=== PATIENT | male | born 1960 | race Caucasian/White ===

== ENCOUNTER 2018-06-16 11:04 | Observation (INO) | payer OTHER ==
[2018-06-16] MEDS ORDERED: Nitroglycerin 2% Ointment 1 INCH/1 GM Packet ONE (11:35)
[2018-06-16 11:36] LABS: #Basophils 0.1 thou/uL (0.0-0.2); #Eosinphils 0.1 thou/uL (0.0-0.7); #Lymphocytes 1.6 thou/uL (1.20-3.40); #Monocytes 0.3 thou/uL (0.11-0.59); #Neutrophils 3.1 thou/uL (1.40-6.50); %Basophils 1.1 % (0.0-1.0); %Eosinophils 2.3 % (0.0-10.0); %Lymphocytes 30.5 % (21.0-51.0); %Monocytes 6.1 % (0.0-10.0); Hemoglobin 12.7 g/dL (14.0-18.0); Mean Corpuscular HGB CONC 33.5 g/dL (32.0-36.0); Mean Corpuscular Hemoglobin 31.3 pg (27.0-31.0); Mean Corpuscular Volume 93.3 fL (78.0-98.0); Mean Platelet Volume 7.7 fL (7.4-10.4); Platelet Count 246 thou/uL (130-400); RBC Distribution Width 12.6 % (11.5-14.5); Red Blood Cell (RBC) Count 4.07 mill/uL (4.70-6.10); White Blood Cell (WBC) Count 5.2 thou/uL (4.8-10.8)
[2018-06-16 12:11] LABS: ALT (SGPT) 20 U/L (8-55); AST (SGOT) 19 U/L (5-34); Alkaline Phosphatase 53 U/L (40-150); Anion Gap 14 mmol/L (10-20); BUN (Urea Nitrogen) 13 mg/dL (8.4-25.7); Bilirubin, Total 0.6 mg/dL (0.2-1.2); CK (CPK) 237 U/L (30-200); Calc. Creatinine Clearance 0 mL/min (70-130); Calcium 9.3 mg/dL (7.8-10.44); Carbon Dioxide 22 mmol/L (22-29); Chloride 110 mmol/L (98-107); Estimated GFR-MDRD 60; Globulin 2.6 g/dL (2.4-3.5); Glucose 86 mg/dL (70-105); Potassium 4.3 mmol/L (3.5-5.1); Protein, Total 6.6 g/dL (6.0-8.3); Sodium 142 mmol/L (136-145)
[2018-06-16] MEDS ORDERED: Acetaminophen 325 MG TAB PO PRN (13:14)
[2018-06-16] MEDS ORDERED: Acetaminophen 650 MG Suppository PR PRN (13:14)
[2018-06-16] MEDS ORDERED: Ondansetron ODT 4 MG TAB PO PRN (13:14)
[2018-06-16] MEDS ORDERED: Guaifenesin DM 100-10/5 ML UDCUP PO PRN (13:14)
[2018-06-16 13:55] VITALS: BMI 33.4
[2018-06-16] MEDS: Nitroglycerin 0.4 MG TAB (25 Tab Bottle) PO PRN ×2 (16:28→16:33)
[2018-06-16] MEDS ORDERED: Docusate 100 MG CAP PO PRN (16:58)
[2018-06-16] MEDS ORDERED: PROVENTIL INHALER 6.7 G (200 INHALATIONS) INH PRN (16:58)
--- NOTE | 2018-06-16 18:47 | RAD ---
TWO VIEW CHEST SERIES: INDICATIONS: Chest pain. Wheezing. COMPARISON: No prior comparison. FINDINGS: Mild hyperinflation of the lungs is seen. There is mild elevation of the left hemidiaphragm. The ca rdiac silhouette is at the upper limits of normal in size. Mild prominence of the pulmonary vasculat ure with interstitial prominence is seen bilaterally. No lobar consolidation. IMPRESSION: 1. Hyperinflated lungs. 2. No lobar consolidation. 3. Mild interstitial prominence bilaterally, which could be on the basis of edema versus mild inters titial lung disease. Correlate clinically. POS: DOUG
--- NOTE | 2018-06-16 18:49 | PDOC.EVN ---
Event Note - Event Note Event Note: patient seen, discussed with Odalys Will, concur
--- NOTE | 2018-06-16 18:57 | HP ---
REASON FOR ADMISSION: Chest pain and shortness of breath. HISTORY OF PRESENT ILLNESS AND REVIEW OF SYSTEMS: Mr. Rothman is a 57-year-old prisoner, who [place] [facility] presenting with chest pain and shortness of breath. He is known to have a history of coronary artery disease, hypertension, and recent NSTEMI. Previous ME in 2005 as well. He has undergone cardiac stents x2, the most recent one was done two weeks ago. According to the patient, the pain is similar to that which he experienced with his recent NSTEMI. It is in the left lower chest/left upper quadrant region. He has had no relief with nitroglycerin paste. He also reported discomfort in the substernal area per outside ED notes, however, denies this at present. The patient reports having pain that is not as severe in the left lower chest, which he rates a 8/10 in severity. He describes a squeezing pain in the center of his chest on initial presentation to the ED. No chest pain at present. He has undergone investigations including an ECG that showed no changes concerning for ischemia at 4:13 a.m. Per outside notes, he had an ECG done early hours this morning, which showed under inflated lungs with bibasilar and retrocardiac opacities felt to represent an atelectasis and no focal consolidation, pneumothorax, or pleural effusion. The aorta was noted to be tortuous and heart size is normal in size. Laboratory studies done early hours this morning included a troponin at 4:24 a.m., which was mildly raised at 0.004 with the reference range of less than 0.034 for normal study. His white cell count was unremarkable. Kidney function was normal. He was noted to have an elevated lipase of 635. Otherwise, LFTs were unremarkable on outside reports. Repeat laboratory studies done here show normal full blood count. Chemistry panel is unremarkable and LFTs normal with a slightly elevated lipase of 102. CK raised at 237. Initial troponin done here was unremarkable. BNP was 86.4. The patient is being admitted for chest pain rule out. PAST MEDICAL HISTORY: 1. COPD. 2. Coronary artery disease. 3. Bunion. 4. Chest pain. 5. Hypertension. 6. Hypothyroidism. 7. Osteoarthritis. 8. NSTEMI in April 2017. 9. Asthma. 10. BPH. 11. ME in 2005. PAST SURGICAL HISTORY: 1. Total knee arthroplasty in September 2012, right foot surgery. 2. Percutaneous transluminal coronary angioplasty in April 2018. SOCIAL HISTORY: The patient is currently a prisoner. He has a history of amphetamine abuse 25 years ago. A 45 pack year smoking history. PHYSICAL EXAMINATION: GENERAL: The patient appears to be in no acute distress, found resting comfortably on a stretcher in the ED. VITAL SIGNS: Temperature 97.9, pulse 73, respirations 20, O2 saturation 97% on room air, and blood pressure 139/103. HEENT: Normocephalic and atraumatic. Pupils are equal, round, and reactive to light. Sclerae icterus. Oropharynx is clear. NECK: Supple without lymphadenopathy. LUNGS: Notable for diffuse inspiratory and expiratory wheezing. No crackles. Reduced at bases bilaterally. CARDIAC: Regular rate and rhythm without audible murmurs, rubs, or gallops. ABDOMEN: Soft, nondistended with mild discomfort in the left upper quadrant, but no guarding or rigidity. EXTREMITIES: No clubbing, cyanosis, or edema. NEUROLOGICAL: Alert and oriented x3. SKIN: Without rash or jaundice. LABORATORY DATA: White blood count 5.2, hemoglobin 12.7, hematocrit 38, platelets 246. Sodium 142, potassium 4.3, BUN 13, creatinine 1.23, eGFR 60, total bilirubin 0.6, AST 19, ALT 20, alkaline phosphatase 53, lipase 102, CK 237, troponin 1 negative. BNP 86.4. IMPRESSION AND PLAN: Mr. Rothman is being admitted for management of the following. 1. Chest pain. At present, the patient denies having any recurrent episodes of chest pain. He complains only of left upper quadrant discomfort at this present time. Troponin done outside and repeated here is negative. BNP 86.4. Per outside chest x-ray report, he was noted to have changes consistent with atelectasis in the bibasilar regions. We will repeat PA and lateral chest x-ray here given shortness of breath and diffuse wheezing with decreased breath sounds at the bases. We will repeat troponin and if negative, symptoms likely unrelated to cardiac etiology. 2. Abdominal discomfort. At present time, this is mild and he has been tolerating oral intake without any nausea or vomiting. No bowel complaints. The [place] [facility] was significantly elevated at 635. Lipase here was only mildly elevated at 102. We will repeat LFTs in the morning as well. 3. Hypertension. Resume home medications and monitor BP. 4. Chronic obstructive pulmonary disease. The patient with wheezing at present. We will give DuoNeb and reassess. As mentioned above, we will repeat chest x-ray. Continue to monitor O2 saturations. 5. Venous thromboembolism prophylaxis. 6. Gastrointestinal prophylaxis. 7. We will obtain outside Cardiology records from recent [id number] myocardial infarction and procedures. The patient was seen by Dr. Neely, who agrees with the plan of care as described above. Job ID: [id number]
[2018-06-16] MEDS ORDERED: Cyclobenzaprine 10 MG TAB PO PRN (19:56)
[2018-06-16] MEDS: Atorvastatin Calcium 40 MG TAB PO SCH (20:31)
[2018-06-16] MEDS: Terazosin HCl 5 MG CAP PO SCH (20:32)
[2018-06-16] MEDS: Famotidine 20 MG TAB PO SCH (20:32)
[2018-06-16] MEDS: Venlafaxine HCl XR 75 MG CAP PO SCH (20:32)
[2018-06-16] MEDS: Metoprolol Tartrate 25 MG TAB PO SCH (20:32)
[2018-06-16] MEDS: Naproxen 500 MG TAB PO SCH (20:34)
[2018-06-16] MEDS ORDERED: Famotidine 20 MG TAB PO SCH (21:00)
--- NOTE | 2018-06-16 21:26 | CON ---
DATE OF CONSULTATION: HISTORY: Parveen Rothman is a 57-year-old white male with history of myocardial infarction in 2005. He also apparently had a recent non-STEMI. He is incarcerated at the present time somewhere in the [place] area. He was taken to [place] and then [facility] to [facility]. He underwent catheterization and stent placement. He states that 1 week later, he underwent a second stent placement. This morning at 1:30 a.m., he was awakened with left-sided chest pressure, tightness associated with some diaphoresis. The pain was definitely pleuritic in nature. He was taken by ambulance to [facility]. Apparently, they could not find any place to transport him to and eventually [facility] agreed to accept him after closer hospitals were found to be full. He has continued to intermittently have chest discomfort lasting 30 to 40 minutes and the pain is pleuritic in nature. PAST MEDICAL HISTORY: COPD, coronary artery disease, hypertension, hypothyroidism, hypercholesterolemia, BPH, and myocardial infarction. OPERATIONS: Knee surgery, foot surgery, coronary stent placement approximately 1 week ago and 2 weeks ago. SOCIAL HISTORY: Methamphetamine abuse for 25 years. He smoked one-third to one-half pack per day. REVIEW OF SYSTEMS: Otherwise unremarkable. PHYSICAL EXAMINATION: VITAL SIGNS: Blood pressure 130/66, pulse of 99. HEENT: PERRL. NECK: Supple. CHEST: Clear. CARDIAC: S1 and S2 normal without any S3, S4, or murmurs. Carotid upstrokes are normal without bruits. ABDOMEN: Normal bowel sounds without tenderness or organomegaly. EXTREMITIES: Revealed no clubbing, cyanosis, or edema. NEUROLOGIC: Grossly intact. SKIN: Warm and dry. MUSCULOSKELETAL: Revealed palpable left chest tenderness that reproduces his pain. LABORATORY DATA: EKG revealed normal sinus rhythm and is unremarkable. Hemoglobin 12.7, hematocrit 38.0, white count 5200, and platelets 246,000. Sodium 142, potassium 4.3, chloride 110, carbon dioxide 22, BUN 13, and creatinine 1.23. Troponin I less than 0.010 x2. IMPRESSION: 1. Noncardiac chest pain. This pain is pleuritic in nature with palpable chest wall tenderness. I doubt that this is cardiac. If this was cardiac pain during this time frame 2 to 3 weeks after stent placement, he would have acute stent thrombosis with very high cardiac enzymes and pain would not intermittently be relieved. 2. History of non-ST elevation myocardial infarction 2 to 3 weeks ago with stent placement and then 1 or 2 weeks later, another stent was placed. He also had myocardial infarction in 2005. 3. Hypertension. 4. Hypercholesterolemia. 5. Hypothyroidism. 6. Former smoker. 7. History of amphetamine abuse. 8. Chronic obstructive pulmonary disease. PLAN: Cardiac enzymes will continue to be obtained. We have requested records from [facility] to better understand the timing of his previous stents. Echocardiogram will be performed to rule out any pericardial fluid that may have been related to his stent placement recently. He will be started on nonsteroidal anti-inflammatory medications and Flexeril for his muscle pain. Job ID: [id number] [facility]
[2018-06-17 05:44] LABS: #Basophils 0.1 thou/uL (0.0-0.2); #Eosinphils 0.2 thou/uL (0.0-0.7); #Lymphocytes 1.7 thou/uL (1.20-3.40); #Monocytes 0.3 thou/uL (0.11-0.59); %Basophils 1.2 % (0.0-1.0); %Eosinophils 4.2 % (0.0-10.0); %Lymphocytes 40.7 % (21.0-51.0); %Monocytes 6.8 % (0.0-10.0); %Neutrophils 47.1 % (42.0-75.0); Hemoglobin 11.4 g/dL (14.0-18.0); Mean Corpuscular HGB CONC 34.3 g/dL (32.0-36.0); Mean Corpuscular Hemoglobin 32.3 pg (27.0-31.0); Mean Corpuscular Volume 94.1 fL (78.0-98.0); Mean Platelet Volume 7.7 fL (7.4-10.4); Platelet Count 230 thou/uL (130-400); RBC Distribution Width 12.4 % (11.5-14.5); Red Blood Cell (RBC) Count 3.52 mill/uL (4.70-6.10); White Blood Cell (WBC) Count 4.3 thou/uL (4.8-10.8)
[2018-06-17] MEDS ORDERED: Levothyroxine Sodium 125 MCG TAB PO SCH (06:00)
[2018-06-17 06:16] LABS: ALT (SGPT) 17 U/L (8-55); AST (SGOT) 16 U/L (5-34); Albumin 3.6 g/dL (3.5-5.0); Alkaline Phosphatase 49 U/L (40-150); Bilirubin, Direct 0.2 mg/dL (0.1-0.3); Bilirubin, Total 0.4 mg/dL (0.2-1.2); Protein, Total 6.1 g/dL (6.0-8.3)
[2018-06-17 06:19] LABS: Anion Gap 14 mmol/L (10-20); BUN (Urea Nitrogen) 13 mg/dL (8.4-25.7); Calc. Creatinine Clearance 137 mL/min (70-130); Calcium 8.9 mg/dL (7.8-10.44); Carbon Dioxide 23 mmol/L (22-29); Chloride 109 mmol/L (98-107); Estimated GFR-MDRD 80; Glucose 82 mg/dL (70-105); Lipase 49 U/L (8-78); Potassium 3.9 mmol/L (3.5-5.1); Sodium 142 mmol/L (136-145)
[2018-06-17] MEDS ORDERED: Lisinopril 20 MG TAB PO SCH (09:00)
[2018-06-17] MEDS ORDERED: Clopidogrel Bisulfate 75 MG TAB PO SCH (09:00)
[2018-06-17] MEDS ORDERED: Aspirin Chewable 81 MG TAB PO SCH (09:00)
[2018-06-17] MEDS ORDERED: Triamterene/Hydrochlorothiazide 37.5 mg/25 mg Tablet PO SCH (09:00)
[2018-06-17] MEDS: Naproxen 500 MG TAB PO SCH ×2 (09:25→20:28)
[2018-06-17] MEDS: Amlodipine 5 MG TAB PO SCH ×2 (09:25→09:26)
[2018-06-17] MEDS: Famotidine 20 MG TAB PO SCH ×2 (09:25→20:27)
[2018-06-17] MEDS: Metoprolol Tartrate 25 MG TAB PO SCH ×2 (09:26→20:26)
[2018-06-17] MEDS: Terazosin HCl 5 MG CAP PO SCH (20:26)
[2018-06-17] MEDS: Atorvastatin Calcium 40 MG TAB PO SCH (20:27)
[2018-06-17] MEDS: Venlafaxine HCl XR 75 MG CAP PO SCH (20:28)
[2018-06-17 20:35] VITALS: BP 153/75; TEMP 98.5
--- NOTE | 2018-06-19 14:13 | DIS ---
DATE OF ADMISSION: 06/16/2018 DATE OF DISCHARGE: 06/18/2018 CONSULTING PHYSICIAN: Dr. Pacheco of Cardiology. DISCHARGE DIAGNOSES: 1. Chest pain, noncardiac. 2. History of non-ST elevation myocardial infarction. 3. Hypertension. 4. Hypercholesterolemia. 5. Hypothyroidism. 6. Tobacco use. 7. History of amphetamine use. 8. Chronic obstructive pulmonary disease. HOSPITAL COURSE: Mr. Rothman is a 57-year-old man, who initially presented complaining of pressure in the left side of his chest and was transferred here from [facility] for chest pain rule out. The patient has had shortness of breath with wheezing that improved on nebulizer treatments. He reported having a cough and noted to have chest wall tenderness. He was evaluated by Dr. Pacheco of Cardiology, who also believed his pain was noncardiac in nature. He did undergo laboratory studies including cardiac enzymes, which were normal. A BNP was normal at 86.4. He underwent a chest x-ray that showed hyperinflated lungs and no lobar consolidation. There was mild interstitial prominence bilaterally, felt to be edema versus mild interstitial lung disease. He also underwent an echo, which showed an EF of 50% to 55% with hypokinetic motion of the apical wall noted in the left ventricle, mild mitral regurgitation and tricuspid regurgitation. The patient had normal vital signs throughout his hospital stay including normal saturations on room air. He had a normal white blood count and was without any complaints on day of discharge. Initially, the patient had complained of left lower abdominal discomfort that resolved on its own. He had no other associated symptoms and lipase done in [facility] was significantly elevated at 635. When repeated here, it was mildly elevated at 102. It was repeated once again on day of discharge and normal at 49. REVIEW OF SYSTEMS: His cough has improved and wheezing has resolved following nebulizer treatments. No further chest pain. He continued with an occasional dry cough with minimal discomfort on palpation of the anterior chest wall, but no complaints of purulent sputum or hemoptysis. He remained afebrile without any chills or sweats. He has been tolerating regular diet. Denies having any nausea or vomiting. No abdominal pain or cramping. No bowel changes or urinary symptoms. All other review of systems, negative. PHYSICAL EXAMINATION: GENERAL: The patient appears well developed, well nourished, in no acute distress. VITAL SIGNS: Temperature 98.5, pulse 80, respirations 16, O2 saturation 97% on room air, blood pressure 153/75. HEENT: Normocephalic, atraumatic. Pupils are equal, round, and reactive to light. Sclerae are without icterus. Oropharynx is clear. NECK: Supple. No lymphadenopathy. LUNGS: Clear to auscultation bilaterally without wheezes, rales, or rhonchi. CARDIAC: Regular rate and rhythm without audible murmurs, rubs, or gallops. ABDOMEN: Soft, nontender, nondistended. Normoactive bowel sounds present. EXTREMITIES: No clubbing, cyanosis, or edema. NEUROLOGIC: Alert and oriented x3. SKIN: Without rash or jaundice. LABORATORY DATA: White blood count 4.3, hemoglobin 11.4, hematocrit 33.1, platelets 230. Sodium 142, potassium 3.9, BUN 13, creatinine 0.96, GFR 80. LFTs unremarkable. Troponin negative x3. Lipase 49. IMAGING DATA: 1. Chest x-ray, 06/16/2018. Hyperinflated lungs. No lobar consolidation. Mild interstitial prominence bilaterally, edema versus mild interstitial lung disease. 2. Echo, 06/17/2018. No evidence of any pericardial effusion. EF 50% to 55%. Hypokinetic motion of the apical wall in the left ventricle. Mild mitral regurgitation. Mild tricuspid regurgitation. 3. ECG, 06/16/2018. Normal sinus rhythm. DISCHARGE MEDICATIONS: The patient is started on Flexeril by Dr. Pacheco as he is believed to have musculoskeletal type pain rather than cardiac in nature. He was given a new prescription for Flexeril 10 mg p.o. three times a day as needed. Otherwise, advised to resume regular home medications. CONDITION AT DISCHARGE: Stable. ACTIVITY: As tolerated. DIET: Heart healthy. FOLLOWUP: The patient to be seen by primary care physician within one week. DISPOSITION: The patient [facility] to [facility] on June [facility], 2018. The patient's case was discussed with Dr. Dobbs, who agrees with plan of care as described above. Job ID: [id number]
--- NOTE | 2018-06-21 17:34 | EKG ---
Test Reason : CP Blood Pressure : / mmHG Vent. Rate : 071 BPM Atrial Rate : 071 BPM P-R Int : 122 ms QRS Dur : 102 ms QT Int : 398 ms P-R-T Axes : -19 009 006 degrees QTc Int : 432 ms Normal sinus rhythm Normal ECG Confirmed by LIA HERNANDEZ, SARAH Simms ([id number]), slot editor MARYAM BUSTAMANTE ([id number]) on 06/21/2018 5:34:12 PM Referred By: Confirmed By:SARAH FITZGERALD MD
== END 2018-06-18 02:48 ==
LOC: ERS 11:04 → 2SW 12:14
PROVIDERS: ADMIT Internal Medicine; ATTEND Internal Medicine
DX: R07.89 Other chest pain (principal); R06.02 Shortness of breath; I25.2 Old myocardial infarction; I10 Essential (primary) hypertension; E78.00 Pure hypercholesterolemia, unspecified; J44.9 Chronic obstructive pulmonary disease, unspecified; E03.9 Hypothyroidism, unspecified; I25.10 Atherosclerotic heart disease of native coronary artery without angina pectoris; N40.0 Benign prostatic hyperplasia without lower urinary tract symptoms; M19.90 Unspecified osteoarthritis, unspecified site; Z79.82 Long term (current) use of aspirin; Z79.899 Other long term (current) drug therapy; Z87.891 Personal history of nicotine dependence; Z88.0 Allergy status to penicillin; Z95.5 Presence of coronary angioplasty implant and graft
CPT/HCPCS: 36415; 71046; 80048; 80053; 80076; 82150; 82550; 83690; 83880; 84484; 85025; 90471; 90732; 93005; 93306; 94640; 99285; G0009; G0378; J7620

== ENCOUNTER 2022-07-04 23:57 | Emergency (ER) | payer OTHER ==
[2022-07-05] MEDS ORDERED: Morphine 2 MG/ML VIAL ONE ×2 (00:31→06:10)
[2022-07-05 01:18] LABS: ALT (SGPT) 15 U/L (8-55); AST (SGOT) 26 U/L (5-34); Alkaline Phosphatase 56 U/L (40-110); Anion Gap 12 mmol/L (10-20); BUN (Urea Nitrogen) 6 mg/dL (8.4-25.7); Bilirubin, Total 0.5 mg/dL (0.2-1.2); Calc. Creatinine Clearance 0 mL/min (70-130); Carbon Dioxide 23 mmol/L (23-31); Chloride 109 mmol/L (98-107); Estimated GFR 91; Globulin 3.1 g/dL (2.4-3.5); Glucose 99 mg/dL (80-115); Potassium 3.8 mmol/L (3.5-5.1); Protein, Total 7.1 g/dL (5.8-8.1); Sodium 140 mmol/L (136-145)
[2022-07-05] MEDS ORDERED: FENTANYL 50 MCG/ML 1 ML VIAL ONE ×4 (01:49→10:07)
[2022-07-05 04:47] LABS: Troponin I 3.178 ng/mL (< 0.028)
[2022-07-05] MEDS ORDERED: HYDROmorphone 0.5 MG/0.5 ML SYRINGE ONE (12:42)
== END 2022-07-05 18:37 | disposition short-term general hospital (02) ==
LOC: ERS 23:57
DX: I21.4 Non-ST elevation (NSTEMI) myocardial infarction (principal); I25.10 Atherosclerotic heart disease of native coronary artery without angina pectoris; J43.9 Emphysema, unspecified; E78.5 Hyperlipidemia, unspecified; E03.9 Hypothyroidism, unspecified; Z87.891 Personal history of nicotine dependence
CPT/HCPCS: 36415; 80053; 93005; 96365; 96366; 96375; 96376; J1170; J2272; J3010

== ENCOUNTER 2022-07-28 23:11 | Emergency (ER) | payer OTHER ==
[2022-07-28 23:42] LABS: #Basophils 0.1 thou/uL (0.0-0.2); #Eosinphils 0.1 thou/uL (0.0-0.7); #Lymphocytes 1.7 thou/uL (1.20-3.40); #Monocytes 0.7 thou/uL (0.11-0.59); #Neutrophils 4.4 thou/uL (1.40-6.50); %Basophils 0.8 % (0.0-1.0); %Eosinophils 1.4 % (0.0-10.0); %Lymphocytes 24.2 % (21.0-51.0); %Monocytes 9.8 % (0.0-10.0); %Neutrophils 63.8 % (42.0-75.0); Hemoglobin 13.4 g/dL (14.0-18.0); Mean Corpuscular HGB CONC 34.4 g/dL (32.0-36.0); Mean Corpuscular Hemoglobin 31.6 pg (27.0-31.0); Mean Corpuscular Volume 91.7 fl (78.0-98.0); Mean Platelet Volume 8.3 fL (7.4-10.4); Platelet Count 233 10x3/uL (130-400); RBC Distribution Width 13.2 % (11.5-14.5); Red Blood Cell (RBC) Count 4.26 mill/uL (4.70-6.10); White Blood Cell (WBC) Count 6.8 10x3/uL (4.8-10.8)
[2022-07-28] MEDS ORDERED: Morphine 4 MG/ML VIAL ONE (23:50)
[2022-07-28] MEDS ORDERED: Nitroglycerin 2% Ointment 1 INCH/1 GM Packet ONE (23:51)
[2022-07-28] MEDS ORDERED: Ondansetron PF 4 MG/2 ML Vial ONE (23:51)
[2022-07-28] MEDS ORDERED: Ketorolac Tromethamine 30 MG/ML VIAL ONE (23:52)
[2022-07-29 00:04] LABS: ALT (SGPT) 18 U/L (8-55); AST (SGOT) 19 U/L (5-34); Albumin 4.2 g/dL (3.4-4.8); Alkaline Phosphatase 53 U/L (40-110); Anion Gap 13 mmol/L (10-20); BUN (Urea Nitrogen) 17 mg/dL (8.4-25.7); Bilirubin, Total 0.6 mg/dL (0.2-1.2); Calc. Creatinine Clearance 0 mL/min (70-130); Calcium 9.5 mg/dL (7.8-10.44); Carbon Dioxide 29 mmol/L (23-31); Chloride 103 mmol/L (98-107); Estimated GFR 65; Globulin 3.5 g/dL (2.4-3.5); Glucose 88 mg/dL (80-115); Lipase 38 U/L (8-78); Magnesium 2.2 mg/dL (1.6-2.6); Potassium 3.6 mmol/L (3.5-5.1); Protein, Total 7.7 g/dL (5.8-8.1); Sodium 141 mmol/L (136-145)
[2022-07-29 00:08] LABS: INR-International Normal Ratio 1.3; PTT 31.2 sec (22.9-36.1); Prothrombin Time 16.6 sec (12.0-14.7)
[2022-07-29] MEDS ORDERED: Nitroglycerin 50 MG/250 ML BOT 250 ML ONE (00:27)
[2022-07-29] MEDS ORDERED: Morphine 4 MG/ML VIAL ONE ×3 (02:15→13:17)
[2022-07-29 02:35] LABS: SARS-CoV-2 NAA Rapid Test Not Detected (NotDetected)
[2022-07-29] MEDS ORDERED: HYDROmorphone 0.5 MG/0.5 ML SYRINGE ONE (05:26)
== END 2022-07-29 13:36 | disposition short-term general hospital (02) ==
LOC: ERS 23:11
DX: I25.110 Atherosclerotic heart disease of native coronary artery with unstable angina pectoris (principal); J43.9 Emphysema, unspecified; I10 Essential (primary) hypertension; E03.9 Hypothyroidism, unspecified; Z87.891 Personal history of nicotine dependence; Z20.822 Contact with and (suspected) exposure to COVID-19
CPT/HCPCS: 71045; 80053; 83690; 83735; 84484; 85025; 85610; 85730; 93005; 96365; 96372; 96375; 96376; J1170; J1650; J1885; J2270; J2405; U0002